=== PATIENT | male | born 1945 | race Caucasian/White ===

== ENCOUNTER 2023-03-31 01:45 | Emergency (ER) | payer MEDICARE, OTHER ==
[~2023-03-31] VITALS: Ht 172.7 cm; Wt 77.6 kg
[2023-03-31] MEDS ORDERED: PREG50CA GT (02:25)
[2023-03-31] MEDS ORDERED: GLIM4TAB37 GT (02:25)
[2023-03-31] MEDS ORDERED: SENN8.6T19 GT (02:25)
[2023-03-31] MEDS ORDERED: ZINC50TA69 GT (02:25)
[2023-03-31] MEDS ORDERED: ASPI81TA31 GT (02:25)
[2023-03-31] MEDS ORDERED: ARGI1POW13 GT (02:25)
[2023-03-31] MEDS ORDERED: FAMO40TA7 GT (02:25)
[2023-03-31] MEDS ORDERED: ACET160E36 GT (02:25)
[2023-03-31] MEDS ORDERED: GABA800T11 GT (02:25)
[2023-03-31] MEDS ORDERED: METF-442 GT (02:25)
[2023-03-31] MEDS ORDERED: ROPI1TAB6 GT (02:25)
[2023-03-31] MEDS ORDERED: ASCO500C18 GT (02:25)
[2023-03-31] MEDS ORDERED: METO25TA6 GT (02:25)
[2023-03-31] MEDS ORDERED: INSU100V39 SQ (02:25)
[2023-03-31] MEDS ORDERED: MULT-1045 GT (02:25)
[2023-03-31] MEDS ORDERED: ATOR80TA GT (02:25)
[2023-03-31] MEDS ORDERED: TAMS-3 GT (02:25)
[2023-03-31] MEDS ORDERED: ZINC56.713 TP (02:25)
[2023-03-31] MEDS ORDERED: ONDA-104 GT (02:25)
[2023-03-31] MEDS ORDERED: AMMO385C4 TP (02:25)
[2023-03-31] MEDS ORDERED: VALP250S4 GT (02:25)
[2023-03-31] MEDS ORDERED: TOPI50TA24 GT (02:25)
[2023-03-31] MEDS ORDERED: DONE23TA3 GT (02:25)
[2023-03-31] MEDS ORDERED: BISA10SU61 RC (02:25)
[2023-03-31] MEDS ORDERED: HEPA500034 SQ (02:25)
[2023-03-31] MEDS ORDERED: INSU100V7 SQ (02:25)
[2023-03-31] MEDS ORDERED: CARB1TAB21 GT (02:25)
[2023-03-31] MEDS ORDERED: POLY17PO4 GT (02:25)
[2023-03-31] MEDS ORDERED: AMIN30LI2 PO (02:25)
[2023-03-31] MEDS ORDERED: METO5TAB87 GT (02:25)
[2023-03-31] MEDS ORDERED: LACT10SO58 GT (02:25)
[2023-03-31] MEDS ORDERED: PRED20TA GT (02:25)
[2023-03-31] MEDS ORDERED: CRAN450T9 GT (02:25)
[2023-03-31] MEDS ORDERED: NA P133E RC (02:25)
[2023-03-31] MEDS ORDERED: MAGN400O6 GT (02:25)
--- NOTE | 2023-03-31 03:12 | NUR ---
1) IV ACCESS TO LEFT HAND 22G. ii) N/saline 0.9% running as a bolus.
--- NOTE | 2023-03-31 03:45 | NUR ---
1) Received from long term-[facility] - in [place]. 2) On arrival patient unresponsive - baseline. Patient is arousable to pain. 3) Medical history of: Alzheimers, Parkinson, dementia, peripheral vascular disease, diabetic - type2. 4) Patient need all care du to condition. 5) Come in with ambulance.
--- NOTE | 2023-03-31 04:02 | NUR ---
1) LAB- CRITICAL VALUES i) Glucose 309 ii) Troponin 80 iii) Lactic Acid 4.4 2) ER informed - no new orders
[2023-03-31 04:14] LABS: HEMATOCRIT 55.8 % (36.7-47.1); MEAN CORPUSCULAR HEMOGLOBIN 30.8 uug (23.8-33.4); MEAN CORPUSCULAR VOLUME 92.5 fL (73.0-96.2); PLATELET COUNT (AUTO) 161 K/uL (152-348)
--- NOTE | 2023-03-31 04:14 | NUR ---
LABS; i) Urine ii) Covid Test taken and sent to lab.
[2023-03-31 04:17] LABS: ALANINE AMINOTRANSFERASE 28 U/L (16-63); ALKALINE PHOSPHATASE 103 U/L (50-136); ASPARTATE AMINOTRANSFERASE 21 U/L (15-37); BILIRUBIN,DIRECT 0.3 mg/dL (0.0-0.2); BILIRUBIN,TOTAL 0.9 mg/dL (0.2-1.0); CARBON DIOXIDE 32 mmol/L (21-32); CHLORIDE 95 mmol/L (98-107); CREATININE 0.9 mg/dL (0.6-1.3); POTASSIUM 4.5 mmol/L (3.5-5.1); TOTAL PROTEIN, SERUM 6.1 g/dL (6.4-8.2); UREA NITROGEN, BLOOD 25 mg/dL (7-18)
[2023-03-31 04:34] LABS: GLUCOSE 309 mg/dL (74-106)
[2023-03-31] MEDS ORDERED: VANCOMYCIN IV 1,000 MG in IV DEXTROSE 5% 250 ML IV ONE (04:45)
[2023-03-31] MEDS ORDERED: IV NS 1000 ML 1,000 ML IV ONE ×2 (04:45→10:30)
[2023-03-31 04:54] LABS: *BILIRUBIN,URIN 1+ (NEGATIVE); *CLARITY,URINE CLEAR (CLEAR); *COLOR,URINE YELLOW (YELLOW); *KETONES,URINE 2+ (NEGATIVE); LEUKOCYTE ESTERASE ,URINE 1+ (NEGATIVE); NITRITE, URINE NEGATIVE (NEGATIVE); UGLUCOSE TRACE (NEGATIVE)
[2023-03-31] MEDS ORDERED: PIPERACILLIN/TAZO 4.5 GM VIAL IV ONE (05:21)
[2023-03-31] MEDS ORDERED: VANCOMYCIN IV 200 ML ONE (05:21)
[2023-03-31] MEDS ORDERED: MAGNESIUM SULFATE/D5W 100 ML ONE ×2 (05:22→07:26)
[2023-03-31] MEDS: MAGNESIUM SULFATE/D5W 100 ML IV SCH ×3 (05:24→06:45)
--- NOTE | 2023-03-31 05:40 | NUR ---
IV ATB running as per regime. Patient asleep at the time of this report
[2023-03-31] MEDS ORDERED: PIPERACILLIN SODIUM/TAZOBACTAM 4.5 G in IV DEXTROSE 5% 50 ML IV SCH (06:00)
[2023-03-31 06:16] LABS: *BLOOD, URINE TRACE (NEGATIVE)
--- NOTE | 2023-03-31 06:55 | NUR ---
Spoke to family - aware of possible transfer to [facility] or [facility].
[2023-03-31 07:00] LABS: WBC,URINE 80-100 /HPF (0-3)
[2023-03-31 07:01] LABS: SQUAMOUS EPITHELIAL CELL,UR NONE SEEN /HPF (NONE SEEN)
[2023-03-31 07:02] LABS: BACTERIA,URINE FEW /HPF (NONE SEEN); CALCIUM OXALATE CRYSTALS,UR FEW /HPF (NONE SEEN); MUCUS,URINE FEW /LPF (0-FEW)
[2023-03-31] MEDS ORDERED: IV NORMAL SALINE 250 ML IV ONE (08:43)
[2023-03-31] MEDS ORDERED: SWABABLE VALVE TRANSFER SET EA MC ONE (08:43)
[2023-03-31] MEDS ORDERED: IOHEXOL 350 100 ML INFUS..BTL ONE (08:43)
--- NOTE | 2023-03-31 08:56 | NUR ---
0717am: Forex Trader assumes care: SBAR received from chargemaster analyst Kristofer. This patient is for transfer to [facility] with a working diagnosis of pneumonitis, pending detailed transfer information from patient's insurance company at this time. 0730am: 1st contact with patient: baseline non-interactive, non-verbal, his eyes are close but opens to deep stimuli, he is moving his upper extremities. There are fine uncontrollable intermittent tremors to R upper extremity seen. Patient's respiration is non-labored and even with SPO2=90% room air. His skin is cool and dry. Trace movement to lower extremities seen. 0830am: Patient is for CTA chest. 2 RNs attempted another peripheral IV line insertion, unsuccessful, notified. 0855am: Patient is still waiting for transfer information from the insurance company's case hardener per ER registration/admitting staff
--- NOTE | 2023-03-31 10:04 | NUR ---
Patient is back from CT scan. IV line was infiltrated while in CT scan, notified.
--- NOTE | 2023-03-31 10:39 | NUR ---
Patient will be transferred to an outside facility: [facility]- ER Physician: Julio Darling Location: ER department (ER to ER) RN: Shaniqua accepted hands off report. ALS ambulance ETA: 1230pm with [facility] (I arranged this.) pending callback from [email or web address] pt's family: Amanda was updated via phone
--- NOTE | 2023-03-31 13:26 | NUR ---
SBAR given to tyre retreader named James of ALS unit#[id number] ([facility]). Patient left ER in stable condition with all his belongings.
== END 2023-03-31 13:29 | disposition short-term general hospital (02) ==
LOC: ER 01:45
DX: J18.9 Pneumonia, unspecified organism (principal); E86.0 Dehydration; I48.92 Unspecified atrial flutter; E83.42 Hypomagnesemia; E87.20 Acidosis, unspecified; F09 Unspecified mental disorder due to known physiological condition; E11.9 Type 2 diabetes mellitus without complications; Z95.0 Presence of cardiac pacemaker; Z79.899 Other long term (current) drug therapy; Z79.82 Long term (current) use of aspirin; Z79.4 Long term (current) use of insulin; Z20.822 Contact with and (suspected) exposure to COVID-19
CPT/HCPCS: 99285; 96365; 71275; 71045; 96361; 96366; 87426; 80076; 80048; 81001; 83880; 83735; 85025; 85379; 85730; 84484; 36415; 93005; 96368; 83605 ×2; J3475 ×2; Q9967; J2543; J3370; J7040 ×2; A4663

== ENCOUNTER 2023-12-13 14:40 | Inpatient (IN) | payer MEDICARE, OTHER ==
[~2023-12-13] VITALS: Ht 172.7 cm; Wt 79.4 kg
[~2023-12-13 14:40] MED LIST: ACET160E36 GT; AMIN30LI2 PO; AMMO385C4 TP; ARGI1POW13 GT; ASCO500C18 GT; ASPI81TA31 GT; ATOR80TA GT; BISA10SU61 RC; CARB1TAB21 GT; CRAN450T9 GT; DONE23TA3 GT; FAMO40TA7 GT; GABA800T11 GT; GLIM4TAB37 GT; HEPA500034 SQ; INSU100V39 SQ; INSU100V7 SQ; LACT10SO58 GT; MAGN400O6 GT; METF-442 GT; METO25TA6 GT; METO5TAB87 GT; MULT-1045 GT; NA P133E RC; ONDA-104 GT; POLY17PO4 GT; PRED20TA GT; PREG50CA GT; ROPI1TAB6 GT; SENN8.6T19 GT; TAMS-3 GT; TOPI50TA24 GT; VALP250S4 GT; ZINC50TA69 GT; ZINC56.713 TP
[2023-12-13] MEDS ORDERED: CLINDAMYCIN PHOSPHATE IV 600 MG in IV DEXTROSE 5% 100 ML IV ONE ×4 (15:00)
[2023-12-13] MEDS ORDERED: CEFTRIAXONE 1 G in IV DEXTROSE 5% 50 ML IV ONE ×4 (15:00)
[2023-12-13] MEDS ORDERED: IV NORMAL SALINE 1000 ML BAG IV ONE ×2 (15:00)
[2023-12-13 15:18] LABS: ABG BASE EXCESS 5.2 mmol/L (-2.0-2.0); ABG HCO3 30.6 mmol/L (22.0-26.0); ABG PCO2 48.8 mmHg (35.0-48.0); ABG PH 7.415 (7.340-7.440); ABG PO2 52.7 mmHg (75.0-100.0); AaDO2 87.4 mmHg; COHb 0.6 % (0.0-3.9); MetHb 0.3 % (0.0-1.5); O2Hb 83.8 % (94.0-97.0)
[2023-12-13 15:26] LABS: HEMATOCRIT 28.8 % (36.7-47.1); RED BLOOD CELL COUNT(AUTO) 3.29 MIL/uL (4.06-5.63)
[2023-12-13 15:35] LABS: CALCIUM 9.1 mg/dL (8.5-10.1); CARBON DIOXIDE 28 mmol/L (21-32); CHLORIDE 91 mmol/L (98-107); CREATININE 0.7 mg/dL (0.6-1.3); GLUCOSE 173 mg/dL (74-106); POTASSIUM 4.5 mmol/L (3.5-5.1); SODIUM SERUM 129 mmol/L (136-145); UREA NITROGEN, BLOOD 27 mg/dL (7-18)
[2023-12-13 15:36] LABS: BASOPHILS # (AUTO) 0.1 K/UL (0.0-0.2); BASOPHILS % (AUTO) 0.5 % (0.0-2.0); DIFFERENTIAL COMMENT 0; EOSINOPHILS # (AUTO) 0.1 K/uL (0.0-0.7); EOSINOPHILS % (AUTO) 0.7 % (0.0-7.0); HEMOGLOBIN 9.3 g/dL (12.5-16.3); LYMPHOCYTES # (AUTO) 0.5 K/uL (0.8-4.8); LYMPHOCYTES % (AUTO) 3.2 % (20.5-51.5); MEAN CORPUSCULAR HEMOGLOBIN 28.3 uug (23.8-33.4); MEAN CORPUSCULAR HGB CONC 32 g/dL (32.5-36.3); MEAN CORPUSCULAR VOLUME 87.7 fL (73.0-96.2); MONOCYTES # (AUTO) 0.9 K/uL (0.1-1.30); MONOCYTES % (AUTO) 5.5 % (0.0-11.0); NEUTROPHILS # (AUTO) 14.6 K/uL (1.8-8.9); NEUTROPHILS % (AUTO) 90.1 % (38.5-71.5); PLATELET COUNT (AUTO) 263 K/uL (152-348); RED CELL DISTRIBUTION WIDTH 19.6 % (12.1-16.2); WHITE BLOOD COUNT (AUTO) 16.3 K/uL (3.6-10.2)
[2023-12-13] MEDS ORDERED: CEFTRIAXONE /D5W 50ML IVPB **ER PYXIS IV ONE (15:46)
[2023-12-13 15:48] LABS: ALANINE AMINOTRANSFERASE 9 U/L (16-63); ALBUMIN 2.5 g/dL (3.4-5.0); ALKALINE PHOSPHATASE 116 U/L (50-136); ASPARTATE AMINOTRANSFERASE 13 U/L (15-37); BILIRUBIN,DIRECT 0.2 mg/dL (0.0-0.2); BILIRUBIN,TOTAL 0.4 mg/dL (0.2-1.0); NT-PRO BNP 1192 pg/mL (0-125); TOTAL PROTEIN, SERUM 7.2 g/dL (6.4-8.2)
[2023-12-13] MEDS ORDERED: CLINDAMYCIN 600 MG PIGGYBACK**ER OMNI IV ONE (15:48)
[2023-12-13 16:10] LABS: LACTIC ACID 3.3 mmol/L (0.4-2.0)
[2023-12-13 16:52] LABS: IRON, SERUM 26 ug/dL (50-175)
[2023-12-13 18:04] LABS: *OCCULT BLOOD STOOL NEGATIVE (NEGATIVE)
[2023-12-13 18:22] LABS: *BLOOD, URINE 3+ (NEGATIVE); *CLARITY,URINE TURBID (CLEAR); *COLOR,URINE RED (YELLOW); *KETONES,URINE NEGATIVE (NEGATIVE); *UROBILINOGEN,URINE 0.2 E.U./dl (NORMAL); LEUKOCYTE ESTERASE ,URINE 3+ (NEGATIVE); NITRITE, URINE NEGATIVE (NEGATIVE); PH,URINE 8.5 (5.0-8.0); UGLUCOSE TRACE (NEGATIVE)
[2023-12-13 18:39] LABS: *PROTEIN,URINE 3+ (NEGATIVE)
[2023-12-13] MEDS ORDERED: MAGNESIUM HYDROXIDE 30 ML LIQUID UDC GT PRN (18:45)
[2023-12-13] MEDS ORDERED: BISACODYL 10 MG SUPP.RECT RC PRN (18:45)
[2023-12-13] MEDS ORDERED: FLEET ENEMA 133 ML BOTTLE RC PRN (18:45)
[2023-12-13 18:48] LABS: *BILIRUBIN,URIN 1+ (NEGATIVE)
[2023-12-13] MEDS ORDERED: ONDANSETRON 4 MG/2 ML VIAL IV PRN (19:00)
[2023-12-13] MEDS ORDERED: DEXTROSE 50% 50 ML DISP.SYRIN IV PRN (19:00)
[2023-12-13] MEDS ORDERED: MORPHINE SULFATE 2 MG/1 ML DISP.SYRIN IV PRN (19:00)
[2023-12-13 19:11] LABS: BACTERIA,URINE MODERATE /HPF (NONE SEEN); RBC,URINE TNTC /HPF (0-3); SQUAMOUS EPITHELIAL CELL,UR FEW /HPF (NONE SEEN); WBC,URINE 20-50 /HPF (0-3)
[2023-12-13 21:50] VITALS: BP 94/48; TEMP 98.5; O2SAT 96
[2023-12-13] MEDS ORDERED: INSULIN GLARGINE,HUM 300 UNITS/3 ML CARTRIDGE SQ SCH (23:14)
[2023-12-14] VITALS: BP 105/57; TEMP 100.8; O2SAT 96
[2023-12-14] MEDS ORDERED: VANCOMYCIN IV 1,000 MG in IV DEXTROSE 5% 250 ML IV ONE ×2
[2023-12-14] MEDS: VALPROIC ACID 250 MG/5 ML LIQUID UDC GT SCH ×2 (00:12→08:36)
[2023-12-14] MEDS: HEPARIN SODIUM,PORCINE 5,000 UNITS/ML VIAL SQ SCH ×2 (00:13→08:34)
[2023-12-14] MEDS: TAMSULOSIN HCL 0.4 MG CAP.SR.24H XX SCH ×2 (00:13→08:33)
[2023-12-14] MEDS: CARBIDOPA/LEVODOPA 25-100MG TABLET GT SCH ×2 (00:13→08:32)
[2023-12-14] MEDS ORDERED: PIPERACILLIN SODIUM/TAZO 3.375 GM VIAL ONE (00:45)
[2023-12-14] MEDS ORDERED: PIPERACILLIN/TAZOBACTAM/D5W 50 ML IV ONE (00:46)
[2023-12-14] MEDS ORDERED: VANCOMYCIN IV 200 ML ONE (00:47)
[2023-12-14] MEDS ORDERED: INSULIN GLARGINE,HUM 300 UNITS/3 ML CARTRIDGE SQ ONE (00:48)
[2023-12-14] MEDS: PIPERACILLIN SODIUM/TAZOBACTAM 3.375 G in IV DEXTROSE 5% 50 ML IV SCH ×2 (00:53→05:21)
[2023-12-14] MEDS: BLOOD SUGAR DIAGNOSTIC 1 EACH STRIP VI SCH ×4 (00:59→18:25)
[2023-12-14] MEDS: INSULIN REGULAR, HUMAN 300 UNIT/3 ML VIAL SQ PRN ×3 (01:09→18:23)
[2023-12-14 04:00] VITALS: BP 102/51; TEMP 98.7; O2SAT 96
[2023-12-14 05:59] LABS: ABG BASE EXCESS 5.9 mmol/L (-2.0-2.0); ABG HCO3 31.2 mmol/L (22.0-26.0); ABG PCO2 48.7 mmHg (35.0-48.0); ABG PH 7.424 (7.340-7.440); ABG PO2 93.4 mmHg (75.0-100.0); ABG SITE RIGHT RADIAL; ABG TOTAL HEMOGLOBIN 9.8 G/dL (14.0-18.0); AaDO2 97.2 mmHg; COHb 0.6 % (0.0-3.9); MetHb 0.1 % (0.0-1.5); O2Hb 96.1 % (94.0-97.0)
[2023-12-14 07:46] LABS: BASOPHILS % (AUTO) 0.2 % (0.0-2.0); EOSINOPHILS # (AUTO) 0.4 K/uL (0.0-0.7); EOSINOPHILS % (AUTO) 2.4 % (0.0-7.0); HEMATOCRIT 27.5 % (36.7-47.1); HEMOGLOBIN 8.9 g/dL (12.5-16.3); LYMPHOCYTES # (AUTO) 0.9 K/uL (0.8-4.8); LYMPHOCYTES % (AUTO) 5.2 % (20.5-51.5); MEAN CORPUSCULAR HEMOGLOBIN 28.9 uug (23.8-33.4); MEAN CORPUSCULAR HGB CONC 32 g/dL (32.5-36.3); MEAN CORPUSCULAR VOLUME 89.5 fL (73.0-96.2); MONOCYTES # (AUTO) 0.9 K/uL (0.1-1.30); NEUTROPHILS # (AUTO) 15.2 K/uL (1.8-8.9); NEUTROPHILS % (AUTO) 87.2 % (38.5-71.5); PLATELET COUNT (AUTO) 263 K/uL (152-348); RED BLOOD CELL COUNT(AUTO) 3.07 MIL/uL (4.06-5.63); RED CELL DISTRIBUTION WIDTH 19.7 % (12.1-16.2); WHITE BLOOD COUNT (AUTO) 17.4 K/uL (3.6-10.2)
[2023-12-14 08:10] VITALS: O2SAT 98
[2023-12-14] MEDS: ALBUTEROL SULFATE 2.5 MG/ 0.5 ML NEBU NEB PRN (08:11)
[2023-12-14 08:20] LABS: DIFFERENTIAL COMMENT 1
[2023-12-14 08:21] LABS: THYROID STIMULATING HORMONE 1.664 mIU/mL (0.358-3.740)
[2023-12-14] MEDS: ropiniROLE 1 MG TABLET GT SCH ×3 (08:33→17:17)
[2023-12-14] MEDS: MULTIVITAMINS,THERAPEUTIC TABLET GT SCH (08:33)
[2023-12-14] MEDS: FAMOTIDINE 20 MG TABLET GT SCH (08:33)
[2023-12-14] MEDS: PROTEIN SUPPLEMENT (PROSTAT) 30 ML LIQUID PO SCH (08:36)
[2023-12-14] MEDS: ARGININE/GLUTAMINE/CALCIUM BMB 1 EACH POWD.PACK GT SCH ×2 (08:36→17:21)
[2023-12-14] MEDS ORDERED: SENNOSIDES 1 TABLET GT SCH (09:00)
[2023-12-14] MEDS ORDERED: TOPIRAMATE 25 MG TABLET GT SCH (09:00)
[2023-12-14] MEDS ORDERED: ZINC SULFATE 220 MG CAPSULE GT SCH (09:00)
[2023-12-14] MEDS ORDERED: ASPIRIN 81 MG TAB.CHEW GT SCH (09:00)
[2023-12-14 09:06] LABS: IRON, SERUM 10 ug/dL (50-175)
[2023-12-14] MEDS ORDERED: DOCU100T2 GT (09:18)
[2023-12-14] MEDS ORDERED: BETH10TA2 GT (09:18)
[2023-12-14] MEDS ORDERED: ESCI10TA GT (09:18)
[2023-12-14] MEDS ORDERED: DOXA2TAB2 GT (09:18)
[2023-12-14] MEDS ORDERED: MULT-213 GT (09:18)
[2023-12-14] MEDS ORDERED: CHOL-35 GT (09:18)
[2023-12-14] MEDS ORDERED: DONE5TAB34 GT (09:18)
[2023-12-14] MEDS ORDERED: INSU3INS6 SQ (09:18)
[2023-12-14] MEDS ORDERED: ONDA4TAB5 GT (09:18)
[2023-12-14] MEDS ORDERED: FAMO40TA7 GT (09:18)
[2023-12-14] MEDS ORDERED: MELA5TAB GT (09:18)
[2023-12-14] MEDS ORDERED: METF-442 GT (09:18)
[2023-12-14] MEDS ORDERED: FOLI0.8T23 GT (09:18)
[2023-12-14] MEDS ORDERED: METO25TA6 GT (09:18)
[2023-12-14] MEDS ORDERED: CRAN450T9 GT (09:18)
[2023-12-14] MEDS ORDERED: GABA300C GT (09:18)
[2023-12-14] MEDS ORDERED: ATOR10TA GT (09:18)
[2023-12-14] MEDS ORDERED: ACET-2030 GT (09:18)
[2023-12-14] MEDS ORDERED: HONE15GE TP ×4 (09:37→10:01)
[2023-12-14] MEDS ORDERED: COLL30OI TOP ×3 (09:46→10:10)
[2023-12-14 09:50] LABS: POTASSIUM 4.4 mmol/L (3.5-5.1); SODIUM SERUM 141 mmol/L (136-145)
[2023-12-14 09:51] LABS: BILIRUBIN,TOTAL 0.5 mg/dL (0.2-1.0); CARBON DIOXIDE 29 mmol/L (21-32); CHLORIDE 101 mmol/L (98-107); CREATININE 0.7 mg/dL (0.6-1.3); GLUCOSE 113 mg/dL (74-106); PHOSPHOROUS 3.2 mg/dL (2.5-4.9); UREA NITROGEN, BLOOD 15 mg/dL (7-18)
[2023-12-14 09:52] LABS: ALANINE AMINOTRANSFERASE 8 U/L (16-63); ALBUMIN 2.3 g/dL (3.4-5.0); ALKALINE PHOSPHATASE 73 U/L (50-136); ASPARTATE AMINOTRANSFERASE 10 U/L (15-37); MAGNESIUM 1.5 mg/dL (1.8-2.4); TOTAL PROTEIN, SERUM 6.9 g/dL (6.4-8.2)
[2023-12-14] MEDS ORDERED: POVI37802 TP (09:58)
[2023-12-14] MEDS ORDERED: COLLAGEN TOP (10:07)
[2023-12-14 10:51] LABS: CHOLESTEROL 95 mg/dL (<200); HDL CHOLESTEROL 56 mg/dL (40-60); TRIGLYCERIDES 95 MG/DL (30-150)
[2023-12-14 11:11] LABS: VALPROIC ACID 35 ug/mL (50-100)
[2023-12-14 11:30] VITALS: BP 103/48; TEMP 98.4; O2SAT 93
[2023-12-14] MEDS ORDERED: VANCOMYCIN IV 1,000 MG in IV DEXTROSE 5% 250 ML IV SCH (12:00)
[2023-12-14] MEDS: VANCOMYCIN IV 1,000 MG in IV DEXTROSE 5% 250 ML IV SCH ×2 (12:15→23:45)
[2023-12-14] MEDS ORDERED: PHYTONADIONE 10 MG/1 ML AMPUL SQ ONE (12:45)
[2023-12-14] MEDS: DOCUSATE SODIUM 100 MG/10 ML LIQUID UDC GT SCH (13:46)
[2023-12-14] MEDS: SOD FERRIC GLUC COMPLX/SUCROSE 125 MG in IV NORMAL SALINE 100 ML IV SCH (13:47)
[2023-12-14] MEDS: PIPERACILLIN SODIUM/TAZOBACTAM 3.375 G in IV DEXTROSE 5% 100 ML IV SCH ×2 (13:47→21:04)
[2023-12-14] MEDS ORDERED: PIPERACILLIN SODIUM/TAZOBACTAM 3.375 G in IV DEXTROSE 5% 50 ML IV SCH (14:00)
[2023-12-14] MEDS ORDERED: SWABABLE VALVE TRANSFER SET EA MC ONE (14:37)
[2023-12-14] MEDS ORDERED: IOHEXOL 300MG/ML 100 ML INFUS..BTL ONE (14:37)
[2023-12-14] MEDS ORDERED: IV NORMAL SALINE 250 ML IV ONE (14:37)
[2023-12-14] MEDS: DONEPEZIL 5 MG TABLET GT SCH (14:49)
[2023-12-14] MEDS: ESCITALOPRAM OXALATE 10 MG TABLET GT SCH (14:49)
[2023-12-14 16:19] VITALS: BP 116/46; TEMP 98.8; O2SAT 92
[2023-12-14] MEDS: POVIDONE-IODINE OINT 30 GM TUBE TP SCH (16:19)
[2023-12-14] MEDS: MEDIHONEY= THERAHONEY 1.5 OZ TUBE TOP SCH ×5 (16:22→16:28)
[2023-12-14] MEDS: ACETAMINOPHEN ES 500 MG TABLET GT SCH (17:18)
[2023-12-14] MEDS: GABAPENTIN 300 MG CAPSULE GT SCH ×2 (17:18→23:45)
[2023-12-14] MEDS: BETHANECHOL CHLORIDE 10 MG TABLET GT SCH ×2 (18:19→23:45)
[2023-12-14] MEDS: GLUCERNA 1.2 1000ML LIQUID GT PRN (19:00)
[2023-12-14 20:00] VITALS: TEMP 99.5
[2023-12-14] MEDS: ATORVASTATIN 10 MG TABLET GT SCH (21:03)
[2023-12-14] MEDS: MELATONIN 3 MG TABLET GT SCH (21:04)
[2023-12-14] MEDS: DOXAZOSIN 2 MG TABLET GT SCH (21:04)
[2023-12-14] MEDS: INSULIN GLARGINE,HUM 300 UNITS/3 ML CARTRIDGE SQ SCH (21:19)
[2023-12-15] VITALS (8 sets, daily range): BP systolic 103–166; BP diastolic 49–72; TEMP 97.2–100; O2SAT 90–99
[2023-12-15] MEDS: BLOOD SUGAR DIAGNOSTIC 1 EACH STRIP VI SCH ×5 (00:03→23:53)
[2023-12-15] MEDS: INSULIN REGULAR, HUMAN 300 UNIT/3 ML VIAL SQ PRN ×5 (00:21→23:55)
[2023-12-15] MEDS: GABAPENTIN 300 MG CAPSULE GT SCH ×3 (05:51→17:00)
[2023-12-15] MEDS: BETHANECHOL CHLORIDE 10 MG TABLET GT SCH ×3 (05:51→17:00)
[2023-12-15] MEDS: PIPERACILLIN SODIUM/TAZOBACTAM 3.375 G in IV DEXTROSE 5% 100 ML IV SCH (05:57)
[2023-12-15] MEDS: GLUCERNA 1.2 1000ML LIQUID GT PRN ×2 (06:56→23:24)
[2023-12-15 07:57] LABS: BASOPHILS # (AUTO) 0.1 K/UL (0.0-0.2); BASOPHILS % (AUTO) 0.5 % (0.0-2.0); DIFFERENTIAL COMMENT 1; EOSINOPHILS # (AUTO) 0.6 K/uL (0.0-0.7); EOSINOPHILS % (AUTO) 4.3 % (0.0-7.0); HEMOGLOBIN 9.1 g/dL (12.5-16.3); LYMPHOCYTES # (AUTO) 0.5 K/uL (0.8-4.8); LYMPHOCYTES % (AUTO) 3.8 % (20.5-51.5); MEAN CORPUSCULAR HEMOGLOBIN 28.7 uug (23.8-33.4); MEAN CORPUSCULAR HGB CONC 32 g/dL (32.5-36.3); MEAN CORPUSCULAR VOLUME 88.8 fL (73.0-96.2); MONOCYTES # (AUTO) 0.9 K/uL (0.1-1.30); MONOCYTES % (AUTO) 6.2 % (0.0-11.0); NEUTROPHILS # (AUTO) 11.9 K/uL (1.8-8.9); NEUTROPHILS % (AUTO) 85.2 % (38.5-71.5); PLATELET COUNT (AUTO) 234 K/uL (152-348); RED BLOOD CELL COUNT(AUTO) 3.16 MIL/uL (4.06-5.63)
[2023-12-15 08:31] LABS: CALCIUM 8.9 mg/dL (8.5-10.1); CARBON DIOXIDE 34 mmol/L (21-32); CHLORIDE 99 mmol/L (98-107); CREATININE 0.7 mg/dL (0.6-1.3); GLUCOSE 254 mg/dL (74-106); MAGNESIUM 1.6 mg/dL (1.8-2.4); PHOSPHOROUS 3.4 mg/dL (2.5-4.9); SODIUM SERUM 137 mmol/L (136-145); UREA NITROGEN, BLOOD 13 mg/dL (7-18)
[2023-12-15] MEDS: DONEPEZIL 5 MG TABLET GT SCH (08:42)
[2023-12-15] MEDS: CHOLECALCIFEROL 1,000 UNIT TABLET GT SCH (08:42)
[2023-12-15] MEDS: ropiniROLE 1 MG TABLET GT SCH ×3 (08:42→16:50)
[2023-12-15] MEDS: FAMOTIDINE 20 MG TABLET GT SCH (08:42)
[2023-12-15] MEDS: MULTIVITAMINS,THERAPEUTIC TABLET GT SCH (08:42)
[2023-12-15] MEDS: ESCITALOPRAM OXALATE 10 MG TABLET GT SCH (08:42)
[2023-12-15] MEDS: ACETAMINOPHEN ES 500 MG TABLET GT SCH ×2 (08:43→16:51)
[2023-12-15] MEDS: DOCUSATE SODIUM 100 MG/10 ML LIQUID UDC GT SCH (08:43)
[2023-12-15] MEDS: PROTEIN SUPPLEMENT (PROSTAT) 30 ML LIQUID PO SCH (08:46)
[2023-12-15] MEDS: MEDIHONEY= THERAHONEY 1.5 OZ TUBE TOP SCH ×5 (08:47→16:33)
[2023-12-15] MEDS: POVIDONE-IODINE OINT 30 GM TUBE TP SCH (08:51)
[2023-12-15] MEDS ORDERED: COLLAGENASE OINT 30 GM TUBE TOP SCH (09:00)
[2023-12-15] MEDS ORDERED: MEDIHONEY= THERAHONEY 1.5 OZ TUBE TOP SCH (09:00)
[2023-12-15] MEDS ORDERED: MAGNESIUM OXIDE 400 MG TABLET GT ONE (09:45)
[2023-12-15] MEDS: PIPERACILLIN SODIUM/TAZOBACTAM 3.375 G in IV DEXTROSE 5% 50 ML IV SCH ×3 (11:32→23:17)
[2023-12-15] MEDS: SOD FERRIC GLUC COMPLX/SUCROSE 125 MG in IV NORMAL SALINE 100 ML IV SCH (13:02)
[2023-12-15] MEDS: VANCOMYCIN IV 1,000 MG in IV DEXTROSE 5% 250 ML IV SCH (16:05)
[2023-12-15] MEDS: ARGININE/GLUTAMINE/CALCIUM BMB 1 EACH POWD.PACK GT SCH ×2 (16:22→16:51)
[2023-12-15] MEDS: ALBUTEROL SULFATE 2.5 MG/ 0.5 ML NEBU NEB PRN (16:48)
[2023-12-15] MEDS ORDERED: ACETYLCYSTEINE 10% 4ML VIAL NEB PRN (18:30)
[2023-12-15] MEDS ORDERED: ACETYLCYSTEINE 20% 800 MG/4 ML VIAL NEB PRN (19:00)
[2023-12-15] MEDS: ATORVASTATIN 10 MG TABLET GT SCH (21:03)
[2023-12-15] MEDS: DOXAZOSIN 2 MG TABLET GT SCH (21:04)
[2023-12-15] MEDS: MELATONIN 3 MG TABLET GT SCH (21:05)
[2023-12-15] MEDS: INSULIN GLARGINE,HUM 300 UNITS/3 ML CARTRIDGE SQ SCH (21:08)
[2023-12-15 23:26] LABS: ABG BASE EXCESS 6.3 mmol/L (-2.0-2.0); ABG HCO3 34.4 mmol/L (22.0-26.0); ABG PCO2 70.8 mmHg (35.0-48.0); ABG PH 7.304 (7.340-7.440); ABG PO2 68.2 mmHg (75.0-100.0); ABG SITE LEFT BRACHIAL; ABG TOTAL HEMOGLOBIN 10.5 G/dL (14.0-18.0); AaDO2 91.1 mmHg; COHb 0.6 % (0.0-3.9); MetHb 0.2 % (0.0-1.5); O2Hb 90.2 % (94.0-97.0)
[2023-12-16 00:01] VITALS: BP 115/61; TEMP 97.3; O2SAT 99
[2023-12-16] MEDS: VANCOMYCIN IV 1,000 MG in IV DEXTROSE 5% 250 ML IV SCH ×3 (00:10→23:46)
[2023-12-16] MEDS: BETHANECHOL CHLORIDE 10 MG TABLET GT SCH ×5 (00:17→23:00)
[2023-12-16] MEDS: GABAPENTIN 300 MG CAPSULE GT SCH ×5 (00:17→23:01)
[2023-12-16 01:20] LABS: ABG BASE EXCESS 3.2 mmol/L (-2.0-2.0); ABG HCO3 29.8 mmol/L (22.0-26.0); ABG PCO2 55.9 mmHg (35.0-48.0); ABG PH 7.344 (7.340-7.440); ABG PO2 130.4 mmHg (75.0-100.0); ABG SITE RIGHT RADIAL; ABG TOTAL HEMOGLOBIN 10.1 G/dL (14.0-18.0); AaDO2 98.4 mmHg; COHb 0.5 % (0.0-3.9); MetHb 0.3 % (0.0-1.5); O2Hb 97.8 % (94.0-97.0)
[2023-12-16 04:03] VITALS: BP 126/57; TEMP 98.6; O2SAT 100
[2023-12-16] MEDS: PIPERACILLIN SODIUM/TAZOBACTAM 3.375 G in IV DEXTROSE 5% 50 ML IV SCH ×4 (05:00→23:01)
[2023-12-16] MEDS: BLOOD SUGAR DIAGNOSTIC 1 EACH STRIP VI SCH ×4 (05:47→23:07)
[2023-12-16] MEDS: INSULIN REGULAR, HUMAN 300 UNIT/3 ML VIAL SQ PRN ×4 (05:50→23:10)
[2023-12-16 06:47] LABS: BASOPHILS # (AUTO) 0.3 K/UL (0.0-0.2); BASOPHILS % (AUTO) 1.1 % (0.0-2.0); EOSINOPHILS % (AUTO) 0.1 % (0.0-7.0); HEMATOCRIT 26.6 % (36.7-47.1); HEMOGLOBIN 8.4 g/dL (12.5-16.3); LYMPHOCYTES # (AUTO) 0.4 K/uL (0.8-4.8); LYMPHOCYTES % (AUTO) 1.7 % (20.5-51.5); MEAN CORPUSCULAR HEMOGLOBIN 28.3 uug (23.8-33.4); MEAN CORPUSCULAR HGB CONC 32 g/dL (32.5-36.3); MEAN CORPUSCULAR VOLUME 89.7 fL (73.0-96.2); MONOCYTES # (AUTO) 1.3 K/uL (0.1-1.30); MONOCYTES % (AUTO) 5.6 % (0.0-11.0); NEUTROPHILS # (AUTO) 20.5 K/uL (1.8-8.9); NEUTROPHILS % (AUTO) 91.5 % (38.5-71.5); PLATELET COUNT (AUTO) 276 K/uL (152-348); RED BLOOD CELL COUNT(AUTO) 2.97 MIL/uL (4.06-5.63); RED CELL DISTRIBUTION WIDTH 19.7 % (12.1-16.2); WHITE BLOOD COUNT (AUTO) 22.4 K/uL (3.6-10.2)
[2023-12-16 06:54] LABS: DIFFERENTIAL COMMENT 1
[2023-12-16 07:07] LABS: ALANINE AMINOTRANSFERASE 12 U/L (16-63); ALKALINE PHOSPHATASE 135 U/L (50-136); ASPARTATE AMINOTRANSFERASE 20 U/L (15-37); BILIRUBIN,TOTAL 0.4 mg/dL (0.2-1.0); CALCIUM 9.3 mg/dL (8.5-10.1); CARBON DIOXIDE 34 mmol/L (21-32); CHLORIDE 97 mmol/L (98-107); CREATININE 0.7 mg/dL (0.6-1.3); GLUCOSE 342 mg/dL (74-106); MAGNESIUM 1.6 mg/dL (1.8-2.4); PHOSPHOROUS 3.8 mg/dL (2.5-4.9); POTASSIUM 4.9 mmol/L (3.5-5.1); SODIUM SERUM 135 mmol/L (136-145); TOTAL PROTEIN, SERUM 7.1 g/dL (6.4-8.2); UREA NITROGEN, BLOOD 11 mg/dL (7-18)
[2023-12-16] MEDS: MEDIHONEY= THERAHONEY 1.5 OZ TUBE TOP SCH ×5 (09:00→16:11)
[2023-12-16] MEDS: PROTEIN SUPPLEMENT (PROSTAT) 30 ML LIQUID PO SCH (10:02)
[2023-12-16] MEDS: ropiniROLE 1 MG TABLET GT SCH ×3 (10:03→17:48)
[2023-12-16] MEDS: FAMOTIDINE 20 MG TABLET GT SCH (10:03)
[2023-12-16] MEDS: ESCITALOPRAM OXALATE 10 MG TABLET GT SCH (10:03)
[2023-12-16] MEDS: MULTIVITAMINS,THERAPEUTIC TABLET GT SCH (10:03)
[2023-12-16] MEDS: ARGININE/GLUTAMINE/CALCIUM BMB 1 EACH POWD.PACK GT SCH ×2 (10:03→17:51)
[2023-12-16] MEDS: DOCUSATE SODIUM 100 MG/10 ML LIQUID UDC GT SCH (10:03)
[2023-12-16] MEDS: CHOLECALCIFEROL 1,000 UNIT TABLET GT SCH (10:03)
[2023-12-16] MEDS: ACETAMINOPHEN ES 500 MG TABLET GT SCH ×2 (10:04→17:49)
[2023-12-16] MEDS: DONEPEZIL 5 MG TABLET GT SCH (10:04)
[2023-12-16 11:33] VITALS: BP 119/54; TEMP 97.8; O2SAT 93
[2023-12-16] MEDS ORDERED: FUROSEMIDE 40 MG/4 ML VIAL IV ONE (13:45)
[2023-12-16] MEDS: MAGNESIUM SULFATE/D5W 100 ML IV SCH ×4 (15:50→21:23)
[2023-12-16 16:00] VITALS: BP 127/54; TEMP 98.8; O2SAT 98
[2023-12-16] MEDS: POVIDONE-IODINE OINT 30 GM TUBE TP SCH (16:10)
[2023-12-16] MEDS: SOD FERRIC GLUC COMPLX/SUCROSE 125 MG in IV NORMAL SALINE 100 ML IV SCH (17:06)
[2023-12-16] MEDS: MELATONIN 3 MG TABLET GT SCH (20:11)
[2023-12-16] MEDS: ATORVASTATIN 10 MG TABLET GT SCH (20:11)
[2023-12-16] MEDS: DOXAZOSIN 2 MG TABLET GT SCH (20:11)
[2023-12-16 20:14] VITALS: BP 118/52; TEMP 98.4; O2SAT 97
[2023-12-16] MEDS: INSULIN GLARGINE,HUM 300 UNITS/3 ML CARTRIDGE SQ SCH (20:14)
[2023-12-17 00:11] VITALS: BP 130/65; TEMP 97.5; O2SAT 97
[2023-12-17 04:23] VITALS: BP 114/55; TEMP 98.6; O2SAT 96
[2023-12-17] MEDS: PIPERACILLIN SODIUM/TAZOBACTAM 3.375 G in IV DEXTROSE 5% 50 ML IV SCH ×4 (05:04→23:27)
[2023-12-17] MEDS: GABAPENTIN 300 MG CAPSULE GT SCH ×4 (05:15→23:27)
[2023-12-17] MEDS: BETHANECHOL CHLORIDE 10 MG TABLET GT SCH ×4 (05:15→23:27)
[2023-12-17] MEDS: BLOOD SUGAR DIAGNOSTIC 1 EACH STRIP VI SCH ×4 (05:18→23:22)
[2023-12-17] MEDS: INSULIN REGULAR, HUMAN 300 UNIT/3 ML VIAL SQ PRN ×4 (05:22→23:31)
[2023-12-17 07:37] LABS: BASOPHILS % (AUTO) 0.1 % (0.0-2.0); EOSINOPHILS # (AUTO) 0.5 K/uL (0.0-0.7); EOSINOPHILS % (AUTO) 3.3 % (0.0-7.0); HEMATOCRIT 25.8 % (36.7-47.1); HEMOGLOBIN 8.4 g/dL (12.5-16.3); LYMPHOCYTES # (AUTO) 0.6 K/uL (0.8-4.8); LYMPHOCYTES % (AUTO) 3.8 % (20.5-51.5); MEAN CORPUSCULAR HEMOGLOBIN 28.9 uug (23.8-33.4); MEAN CORPUSCULAR HGB CONC 33 g/dL (32.5-36.3); MEAN CORPUSCULAR VOLUME 88.6 fL (73.0-96.2); MONOCYTES # (AUTO) 1.2 K/uL (0.1-1.30); NEUTROPHILS # (AUTO) 12.7 K/uL (1.8-8.9); NEUTROPHILS % (AUTO) 84.8 % (38.5-71.5); PLATELET COUNT (AUTO) 312 K/uL (152-348); RED BLOOD CELL COUNT(AUTO) 2.91 MIL/uL (4.06-5.63); RED CELL DISTRIBUTION WIDTH 19.6 % (12.1-16.2)
[2023-12-17 07:55] LABS: DIFFERENTIAL COMMENT 1
[2023-12-17 08:00] VITALS: BP 123/60; TEMP 97.6; O2SAT 99
[2023-12-17 08:03] LABS: CALCIUM 9.7 mg/dL (8.5-10.1); CARBON DIOXIDE 39 mmol/L (21-32); CHLORIDE 99 mmol/L (98-107); CREATININE 0.7 mg/dL (0.6-1.3); GLUCOSE 236 mg/dL (74-106); MAGNESIUM 2.2 mg/dL (1.8-2.4); PHOSPHOROUS 3.3 mg/dL (2.5-4.9); SODIUM SERUM 140 mmol/L (136-145); UREA NITROGEN, BLOOD 26 mg/dL (7-18)
[2023-12-17] MEDS: MEDIHONEY= THERAHONEY 1.5 OZ TUBE TOP SCH ×5 (09:00→18:12)
[2023-12-17] MEDS: PROTEIN SUPPLEMENT (PROSTAT) 30 ML LIQUID PO SCH (09:25)
[2023-12-17] MEDS: DOCUSATE SODIUM 100 MG/10 ML LIQUID UDC GT SCH (09:26)
[2023-12-17] MEDS: CHOLECALCIFEROL 1,000 UNIT TABLET GT SCH (09:26)
[2023-12-17] MEDS: ARGININE/GLUTAMINE/CALCIUM BMB 1 EACH POWD.PACK GT SCH ×2 (09:26→18:27)
[2023-12-17] MEDS: FAMOTIDINE 20 MG TABLET GT SCH (09:26)
[2023-12-17] MEDS: DONEPEZIL 5 MG TABLET GT SCH (09:27)
[2023-12-17] MEDS: ropiniROLE 1 MG TABLET GT SCH ×3 (09:27→18:25)
[2023-12-17] MEDS: ESCITALOPRAM OXALATE 10 MG TABLET GT SCH (09:27)
[2023-12-17] MEDS: MULTIVITAMINS,THERAPEUTIC TABLET GT SCH (09:27)
[2023-12-17] MEDS: ACETAMINOPHEN ES 500 MG TABLET GT SCH ×2 (09:43→18:25)
[2023-12-17 11:17] VITALS: BP 120/59; TEMP 97.9; O2SAT 99
[2023-12-17] MEDS: GLUCERNA 1.2 1000ML LIQUID GT PRN (14:19)
[2023-12-17] MEDS: SOD FERRIC GLUC COMPLX/SUCROSE 125 MG in IV NORMAL SALINE 100 ML IV SCH (14:19)
[2023-12-17] MEDS ORDERED: FUROSEMIDE 40 MG/4 ML VIAL IV ONE (15:15)
[2023-12-17 15:59] VITALS: BP 114/59; TEMP 98.6; O2SAT 99
[2023-12-17] MEDS: SODIUM HYPOCHLORITE 0.25% (HALF STRENGTH) 480 ML BOTTLE TOP SCH (18:11)
[2023-12-17] MEDS: POVIDONE-IODINE OINT 30 GM TUBE TP SCH (18:12)
[2023-12-17] MEDS: METOPROLOL TARTRATE 25 MG TABLET PO SCH ×2 (18:27→21:00)
[2023-12-17 20:25] VITALS: BP 100/46; TEMP 97.7; O2SAT 94
[2023-12-17] MEDS: ATORVASTATIN 10 MG TABLET GT SCH (20:59)
[2023-12-17] MEDS: DOXAZOSIN 2 MG TABLET GT SCH (20:59)
[2023-12-17] MEDS: INSULIN GLARGINE,HUM 300 UNITS/3 ML CARTRIDGE SQ SCH (21:05)
[2023-12-17] MEDS: MELATONIN 3 MG TABLET GT SCH (21:07)
[2023-12-18] VITALS (8 sets, daily range): BP systolic 96–136; BP diastolic 40–52; TEMP 97.6–98.7; O2SAT 95–100
[2023-12-18] MEDS: GABAPENTIN 300 MG CAPSULE GT SCH ×3 (05:05→17:33)
[2023-12-18] MEDS: BETHANECHOL CHLORIDE 10 MG TABLET GT SCH ×3 (05:05→17:33)
[2023-12-18] MEDS: PIPERACILLIN SODIUM/TAZOBACTAM 3.375 G in IV DEXTROSE 5% 50 ML IV SCH ×3 (05:05→17:34)
[2023-12-18] MEDS: BLOOD SUGAR DIAGNOSTIC 1 EACH STRIP VI SCH ×3 (05:11→18:02)
[2023-12-18] MEDS: INSULIN REGULAR, HUMAN 300 UNIT/3 ML VIAL SQ PRN ×3 (05:13→18:09)
[2023-12-18 06:58] LABS: CHLORIDE 99 mmol/L (98-107); CREATININE 0.8 mg/dL (0.6-1.3); GLUCOSE 168 mg/dL (74-106); MAGNESIUM 1.8 mg/dL (1.8-2.4); PHOSPHOROUS 3.9 mg/dL (2.5-4.9); POTASSIUM 3.7 mmol/L (3.5-5.1); SODIUM SERUM 140 mmol/L (136-145); UREA NITROGEN, BLOOD 35 mg/dL (7-18)
[2023-12-18 07:28] LABS: CALCIUM 9.4 mg/dL (8.5-10.1)
[2023-12-18] MEDS: ALBUTEROL SULFATE 2.5 MG/ 0.5 ML NEBU NEB PRN (07:29)
[2023-12-18 07:31] LABS: BASOPHILS % (AUTO) 0.3 % (0.0-2.0); EOSINOPHILS # (AUTO) 0.4 K/uL (0.0-0.7); HEMATOCRIT 25.4 % (36.7-47.1); HEMOGLOBIN 8.2 g/dL (12.5-16.3); LYMPHOCYTES # (AUTO) 0.9 K/uL (0.8-4.8); LYMPHOCYTES % (AUTO) 6.9 % (20.5-51.5); MEAN CORPUSCULAR HEMOGLOBIN 29.2 uug (23.8-33.4); MEAN CORPUSCULAR HGB CONC 32 g/dL (32.5-36.3); MEAN CORPUSCULAR VOLUME 90.6 fL (73.0-96.2); MONOCYTES # (AUTO) 1.1 K/uL (0.1-1.30); MONOCYTES % (AUTO) 8.6 % (0.0-11.0); NEUTROPHILS # (AUTO) 10.2 K/uL (1.8-8.9); NEUTROPHILS % (AUTO) 81.2 % (38.5-71.5); PLATELET COUNT (AUTO) 333 K/uL (152-348); RED CELL DISTRIBUTION WIDTH 19.6 % (12.1-16.2); WHITE BLOOD COUNT (AUTO) 12.6 K/uL (3.6-10.2)
[2023-12-18 07:38] LABS: DIFFERENTIAL COMMENT 1
[2023-12-18 08:19] LABS: ABG BASE EXCESS 13.8 mmol/L (-2.0-2.0); ABG HCO3 39.9 mmol/L (22.0-26.0); ABG PCO2 57.6 mmHg (35.0-48.0); ABG PH 7.458 (7.340-7.440); ABG PO2 73.6 mmHg (75.0-100.0); ABG TOTAL HEMOGLOBIN 11.7 G/dL (14.0-18.0); AaDO2 95.1 mmHg; COHb 0.4 % (0.0-3.9); MetHb 0.1 % (0.0-1.5); O2Hb 94.3 % (94.0-97.0)
[2023-12-18 08:21] LABS: ABG SITE RIGHT RADIAL
[2023-12-18 08:26] LABS: CARBON DIOXIDE 41 mmol/L (21-32)
[2023-12-18] MEDS: DOCUSATE SODIUM 100 MG/10 ML LIQUID UDC GT SCH (08:51)
[2023-12-18] MEDS: CHOLECALCIFEROL 1,000 UNIT TABLET GT SCH (08:52)
[2023-12-18] MEDS: ACETAMINOPHEN ES 500 MG TABLET GT SCH ×2 (08:52→16:38)
[2023-12-18] MEDS: ropiniROLE 1 MG TABLET GT SCH ×3 (08:52→16:38)
[2023-12-18] MEDS: FAMOTIDINE 20 MG TABLET GT SCH (08:52)
[2023-12-18] MEDS: DONEPEZIL 5 MG TABLET GT SCH (08:53)
[2023-12-18] MEDS: MULTIVITAMINS,THERAPEUTIC TABLET GT SCH (08:53)
[2023-12-18] MEDS: PROTEIN SUPPLEMENT (PROSTAT) 30 ML LIQUID PO SCH (08:53)
[2023-12-18] MEDS: SODIUM HYPOCHLORITE 0.25% (HALF STRENGTH) 480 ML BOTTLE TOP SCH (08:53)
[2023-12-18] MEDS: ESCITALOPRAM OXALATE 10 MG TABLET GT SCH (08:53)
[2023-12-18] MEDS: POVIDONE-IODINE OINT 30 GM TUBE TP SCH (08:54)
[2023-12-18] MEDS: MEDIHONEY= THERAHONEY 1.5 OZ TUBE TOP SCH ×2 (08:54)
[2023-12-18] MEDS: METOPROLOL TARTRATE 25 MG TABLET PO SCH ×2 (08:55→21:00)
[2023-12-18] MEDS: ARGININE/GLUTAMINE/CALCIUM BMB 1 EACH POWD.PACK GT SCH ×2 (08:55→16:38)
[2023-12-18] MEDS: SOD FERRIC GLUC COMPLX/SUCROSE 125 MG in IV NORMAL SALINE 100 ML IV SCH (14:58)
[2023-12-18] MEDS: FUROSEMIDE 40 MG/4 ML VIAL IV SCH ×2 (16:38→21:00)
[2023-12-18] MEDS: DOXAZOSIN 2 MG TABLET GT SCH (21:00)
[2023-12-18] MEDS: MELATONIN 3 MG TABLET GT SCH (21:30)
[2023-12-18] MEDS: ATORVASTATIN 10 MG TABLET GT SCH (21:30)
[2023-12-18] MEDS: INSULIN GLARGINE,HUM 300 UNITS/3 ML CARTRIDGE SQ SCH (21:59)
[2023-12-19] VITALS (7 sets, daily range): BP systolic 108–145; BP diastolic 46–65; TEMP 97.4–98.8; O2SAT 92–99
[2023-12-19] MEDS: PIPERACILLIN SODIUM/TAZOBACTAM 3.375 G in IV DEXTROSE 5% 50 ML IV SCH ×2 (00:08→06:13)
[2023-12-19] MEDS: GABAPENTIN 300 MG CAPSULE GT SCH ×5 (00:08→23:59)
[2023-12-19] MEDS: BETHANECHOL CHLORIDE 10 MG TABLET GT SCH ×5 (00:09→23:59)
[2023-12-19] MEDS: BLOOD SUGAR DIAGNOSTIC 1 EACH STRIP VI SCH ×4 (00:22→17:49)
[2023-12-19] MEDS: INSULIN REGULAR, HUMAN 300 UNIT/3 ML VIAL SQ PRN ×4 (00:28→17:51)
[2023-12-19 08:05] LABS: BASOPHILS # (AUTO) 0.1 K/UL (0.0-0.2); BASOPHILS % (AUTO) 0.5 % (0.0-2.0); EOSINOPHILS # (AUTO) 0.3 K/uL (0.0-0.7); EOSINOPHILS % (AUTO) 3.1 % (0.0-7.0); HEMATOCRIT 29.1 % (36.7-47.1); HEMOGLOBIN 8.9 g/dL (12.5-16.3); LYMPHOCYTES # (AUTO) 0.8 K/uL (0.8-4.8); LYMPHOCYTES % (AUTO) 7.2 % (20.5-51.5); MEAN CORPUSCULAR HEMOGLOBIN 28.1 uug (23.8-33.4); MEAN CORPUSCULAR HGB CONC 31 g/dL (32.5-36.3); MEAN CORPUSCULAR VOLUME 91.6 fL (73.0-96.2); MONOCYTES # (AUTO) 0.9 K/uL (0.1-1.30); MONOCYTES % (AUTO) 8.4 % (0.0-11.0); NEUTROPHILS # (AUTO) 8.8 K/uL (1.8-8.9); NEUTROPHILS % (AUTO) 80.8 % (38.5-71.5); PLATELET COUNT (AUTO) 200 K/uL (152-348); RED BLOOD CELL COUNT(AUTO) 3.18 MIL/uL (4.06-5.63); RED CELL DISTRIBUTION WIDTH 19.7 % (12.1-16.2); WHITE BLOOD COUNT (AUTO) 10.9 K/uL (3.6-10.2)
[2023-12-19 08:07] LABS: ABG BASE EXCESS 15.9 mmol/L (-2.0-2.0); ABG HCO3 42.4 mmol/L (22.0-26.0); ABG PCO2 63.1 mmHg (35.0-48.0); ABG PH 7.445 (7.340-7.440); ABG PO2 75.6 mmHg (75.0-100.0); ABG SITE RIGHT RADIAL; ABG TOTAL HEMOGLOBIN 10.2 G/dL (14.0-18.0); AaDO2 95.2 mmHg; COHb 1.1 % (0.0-3.9); MetHb 0.2 % (0.0-1.5); O2Hb 93.4 % (94.0-97.0)
[2023-12-19 08:19] LABS: DIFFERENTIAL COMMENT 1
[2023-12-19 08:28] LABS: CALCIUM 8.8 mg/dL (8.5-10.1); CHLORIDE 100 mmol/L (98-107); CREATININE 0.6 mg/dL (0.6-1.3); GLUCOSE 219 mg/dL (74-106); MAGNESIUM 1.7 mg/dL (1.8-2.4); PHOSPHOROUS 3.6 mg/dL (2.5-4.9); SODIUM SERUM 145 mmol/L (136-145); UREA NITROGEN, BLOOD 31 mg/dL (7-18)
[2023-12-19 08:32] LABS: CARBON DIOXIDE 40 mmol/L (21-32)
[2023-12-19 08:33] LABS: POTASSIUM 4.4 mmol/L (3.5-5.1)
[2023-12-19] MEDS ORDERED: MAGNESIUM OXIDE 400 MG TABLET GT ONE (09:30)
[2023-12-19] MEDS: DONEPEZIL 5 MG TABLET GT SCH (10:12)
[2023-12-19] MEDS: ESCITALOPRAM OXALATE 10 MG TABLET GT SCH (10:12)
[2023-12-19] MEDS: DOCUSATE SODIUM 100 MG/10 ML LIQUID UDC GT SCH (10:12)
[2023-12-19] MEDS: CHOLECALCIFEROL 1,000 UNIT TABLET GT SCH (10:13)
[2023-12-19] MEDS: MULTIVITAMINS,THERAPEUTIC TABLET GT SCH (10:13)
[2023-12-19] MEDS: ropiniROLE 1 MG TABLET GT SCH ×3 (10:13→17:49)
[2023-12-19] MEDS: FAMOTIDINE 20 MG TABLET GT SCH (10:13)
[2023-12-19] MEDS: ACETAMINOPHEN ES 500 MG TABLET GT SCH ×2 (10:13→17:49)
[2023-12-19] MEDS: FUROSEMIDE 40 MG/4 ML VIAL IV SCH (10:14)
[2023-12-19] MEDS: METOPROLOL TARTRATE 25 MG TABLET PO SCH ×2 (10:14→21:07)
[2023-12-19 10:16] LABS: ABG BASE EXCESS 17.1 mmol/L (-2.0-2.0); ABG HCO3 44.1 mmol/L (22.0-26.0); ABG PCO2 68.4 mmHg (35.0-48.0); ABG PH 7.427 (7.340-7.440); ABG SITE RIGHT RADIAL; ABG TOTAL HEMOGLOBIN 9.8 G/dL (14.0-18.0); COHb 0.9 % (0.0-3.9); MetHb 0.3 % (0.0-1.5); O2Hb 97.2 % (94.0-97.0)
[2023-12-19] MEDS: PROTEIN SUPPLEMENT (PROSTAT) 30 ML LIQUID PO SCH (10:16)
[2023-12-19] MEDS: ARGININE/GLUTAMINE/CALCIUM BMB 1 EACH POWD.PACK GT SCH ×2 (10:17→17:52)
[2023-12-19] MEDS: SODIUM HYPOCHLORITE 0.25% (HALF STRENGTH) 480 ML BOTTLE TOP SCH (10:18)
[2023-12-19] MEDS: POVIDONE-IODINE OINT 30 GM TUBE TP SCH (10:19)
[2023-12-19] MEDS: MEDIHONEY= THERAHONEY 1.5 OZ TUBE TOP SCH ×2 (10:19)
[2023-12-19] MEDS: ACETAzolamide SODIUM 500 MG VIAL IV SCH (12:19)
[2023-12-19] MEDS: PIPERACILLIN SODIUM/TAZOBACTAM 3.375 G in IV DEXTROSE 5% 100 ML IV SCH ×2 (13:32→21:41)
[2023-12-19] MEDS: GLUCERNA 1.2 1000ML LIQUID GT PRN (13:36)
[2023-12-19 19:24] LABS: ANISOCYTOSIS 1+; BAND % (MANUAL) 1 % (0-10); EOSINOPHILS % (MANUAL) 2 % (0-8); LYMPHOCYTES % (MANUAL) 7 % (20-40); MONOCYTES % (MANUAL) 5 % (2-10); NEUTROPHILS % (MANUAL) 85 % (42-75); PLATELET ESTIMATE ADEQUATE
[2023-12-19] MEDS: DOXAZOSIN 2 MG TABLET GT SCH (20:47)
[2023-12-19] MEDS: ATORVASTATIN 10 MG TABLET GT SCH (21:07)
[2023-12-19] MEDS: MELATONIN 3 MG TABLET GT SCH (21:08)
[2023-12-19] MEDS: INSULIN GLARGINE,HUM 300 UNITS/3 ML CARTRIDGE SQ SCH (21:22)
[2023-12-20] VITALS (7 sets, daily range): BP systolic 105–138; BP diastolic 44–62; TEMP 97.8–99.4; O2SAT 92–100
[2023-12-20] MEDS: BLOOD SUGAR DIAGNOSTIC 1 EACH STRIP VI SCH ×4 (00:12→17:21)
[2023-12-20] MEDS: INSULIN REGULAR, HUMAN 300 UNIT/3 ML VIAL SQ PRN ×4 (00:19→17:18)
[2023-12-20] MEDS: GLUCERNA 1.2 1000ML LIQUID GT PRN (04:07)
[2023-12-20 05:35] LABS: ABG BASE EXCESS 11.1 mmol/L (-2.0-2.0); ABG HCO3 37.3 mmol/L (22.0-26.0); ABG PCO2 59.2 mmHg (35.0-48.0); ABG PH 7.417 (7.340-7.440); ABG PO2 84.7 mmHg (75.0-100.0); ABG SITE LEFT BRACHIAL; ABG TOTAL HEMOGLOBIN 9.9 G/dL (14.0-18.0); AaDO2 96.3 mmHg; COHb 0.2 % (0.0-3.9); MetHb 0.3 % (0.0-1.5); O2Hb 95.4 % (94.0-97.0)
[2023-12-20] MEDS: GABAPENTIN 300 MG CAPSULE GT SCH ×3 (05:43→17:20)
[2023-12-20] MEDS: BETHANECHOL CHLORIDE 10 MG TABLET GT SCH ×3 (05:43→17:20)
[2023-12-20] MEDS: PIPERACILLIN SODIUM/TAZOBACTAM 3.375 G in IV DEXTROSE 5% 100 ML IV SCH ×3 (05:45→23:23)
[2023-12-20] MEDS: FAMOTIDINE 20 MG TABLET GT SCH (08:15)
[2023-12-20] MEDS: ACETAMINOPHEN ES 500 MG TABLET GT SCH ×2 (08:15→17:21)
[2023-12-20] MEDS: ESCITALOPRAM OXALATE 10 MG TABLET GT SCH (08:15)
[2023-12-20] MEDS: ACETAzolamide SODIUM 500 MG VIAL IV SCH (08:16)
[2023-12-20] MEDS: CHOLECALCIFEROL 1,000 UNIT TABLET GT SCH (08:16)
[2023-12-20] MEDS: DOCUSATE SODIUM 100 MG/10 ML LIQUID UDC GT SCH (08:19)
[2023-12-20] MEDS: DONEPEZIL 5 MG TABLET GT SCH (08:20)
[2023-12-20] MEDS: ARGININE/GLUTAMINE/CALCIUM BMB 1 EACH POWD.PACK GT SCH ×2 (08:20→17:21)
[2023-12-20] MEDS: METOPROLOL TARTRATE 25 MG TABLET PO SCH ×2 (08:21→21:23)
[2023-12-20] MEDS: MULTIVITAMINS,THERAPEUTIC TABLET GT SCH (08:21)
[2023-12-20] MEDS: PROTEIN SUPPLEMENT (PROSTAT) 30 ML LIQUID PO SCH (08:22)
[2023-12-20] MEDS: SODIUM HYPOCHLORITE 0.25% (HALF STRENGTH) 480 ML BOTTLE TOP SCH (08:24)
[2023-12-20] MEDS: POVIDONE-IODINE OINT 30 GM TUBE TP SCH (08:24)
[2023-12-20] MEDS: MEDIHONEY= THERAHONEY 1.5 OZ TUBE TOP SCH ×2 (08:24)
[2023-12-20 08:25] LABS: CALCIUM 9.3 mg/dL (8.5-10.1); CARBON DIOXIDE 39 mmol/L (21-32); CHLORIDE 99 mmol/L (98-107); CREATININE 0.7 mg/dL (0.6-1.3); GLUCOSE 343 mg/dL (74-106); MAGNESIUM 1.8 mg/dL (1.8-2.4); PHOSPHOROUS 2.7 mg/dL (2.5-4.9); POTASSIUM 3.1 mmol/L (3.5-5.1); SODIUM SERUM 142 mmol/L (136-145); UREA NITROGEN, BLOOD 34 mg/dL (7-18)
[2023-12-20 08:36] LABS: BASOPHILS # (AUTO) 0.1 K/UL (0.0-0.2); BASOPHILS % (AUTO) 0.7 % (0.0-2.0); EOSINOPHILS # (AUTO) 0.2 K/uL (0.0-0.7); EOSINOPHILS % (AUTO) 1.7 % (0.0-7.0); LYMPHOCYTES # (AUTO) 1.2 K/uL (0.8-4.8); LYMPHOCYTES % (AUTO) 11.2 % (20.5-51.5); MEAN CORPUSCULAR HEMOGLOBIN 29.9 uug (23.8-33.4); MEAN CORPUSCULAR HGB CONC 32 g/dL (32.5-36.3); MEAN CORPUSCULAR VOLUME 92.8 fL (73.0-96.2); MONOCYTES # (AUTO) 1.1 K/uL (0.1-1.30); MONOCYTES % (AUTO) 10.6 % (0.0-11.0); NEUTROPHILS % (AUTO) 75.8 % (38.5-71.5); PLATELET COUNT (AUTO) 348 K/uL (152-348); RED BLOOD CELL COUNT(AUTO) 3.02 MIL/uL (4.06-5.63); RED CELL DISTRIBUTION WIDTH 19.5 % (12.1-16.2); WHITE BLOOD COUNT (AUTO) 10.6 K/uL (3.6-10.2)
[2023-12-20 08:41] LABS: DIFFERENTIAL COMMENT 1
[2023-12-20] MEDS: ropiniROLE 1 MG TABLET GT SCH ×3 (08:49→17:20)
[2023-12-20] MEDS ORDERED: POTASSIUM CHLORIDE 20 MEQ POWDER PACKET GT ONE (09:00)
[2023-12-20] MEDS: POTASSIUM CHLORIDE 20 MEQ POWDER PACKET GT SCH ×2 (09:50→14:42)
[2023-12-20] MEDS ORDERED: LOSARTAN POTASSIUM 25 MG TABLET PO SCH (15:15)
[2023-12-20] MEDS: ATORVASTATIN 10 MG TABLET GT SCH (21:23)
[2023-12-20] MEDS: DOXAZOSIN 2 MG TABLET GT SCH (21:23)
[2023-12-20] MEDS: MELATONIN 3 MG TABLET GT SCH (21:25)
[2023-12-20] MEDS: INSULIN GLARGINE,HUM 300 UNITS/3 ML CARTRIDGE SQ SCH (21:59)
[2023-12-21] VITALS (7 sets, daily range): BP systolic 103–114; BP diastolic 43–54; TEMP 97.7–98.2; O2SAT 95–99
[2023-12-21] MEDS: GABAPENTIN 300 MG CAPSULE GT SCH ×4 (00:20→17:34)
[2023-12-21] MEDS: BETHANECHOL CHLORIDE 10 MG TABLET GT SCH ×4 (00:20→17:34)
[2023-12-21] MEDS: BLOOD SUGAR DIAGNOSTIC 1 EACH STRIP VI SCH ×4 (00:36→17:48)
[2023-12-21] MEDS: INSULIN REGULAR, HUMAN 300 UNIT/3 ML VIAL SQ PRN ×3 (06:00→17:51)
[2023-12-21 06:03] LABS: BASOPHILS # (AUTO) 0.1 K/UL (0.0-0.2); BASOPHILS % (AUTO) 0.9 % (0.0-2.0); EOSINOPHILS # (AUTO) 0.4 K/uL (0.0-0.7); EOSINOPHILS % (AUTO) 3.8 % (0.0-7.0); HEMATOCRIT 28.7 % (36.7-47.1); HEMOGLOBIN 9.1 g/dL (12.5-16.3); LYMPHOCYTES # (AUTO) 1.2 K/uL (0.8-4.8); LYMPHOCYTES % (AUTO) 12.5 % (20.5-51.5); MEAN CORPUSCULAR HGB CONC 32 g/dL (32.5-36.3); MEAN CORPUSCULAR VOLUME 91.5 fL (73.0-96.2); MONOCYTES % (AUTO) 10.4 % (0.0-11.0); NEUTROPHILS # (AUTO) 6.8 K/uL (1.8-8.9); NEUTROPHILS % (AUTO) 72.4 % (38.5-71.5); PLATELET COUNT (AUTO) 348 K/uL (152-348); RED BLOOD CELL COUNT(AUTO) 3.14 MIL/uL (4.06-5.63); RED CELL DISTRIBUTION WIDTH 19.8 % (12.1-16.2); WHITE BLOOD COUNT (AUTO) 9.4 K/uL (3.6-10.2)
[2023-12-21] MEDS: PIPERACILLIN SODIUM/TAZOBACTAM 3.375 G in IV DEXTROSE 5% 100 ML IV SCH ×3 (06:05→22:11)
[2023-12-21 06:17] LABS: CALCIUM 9.2 mg/dL (8.5-10.1); CARBON DIOXIDE 36 mmol/L (21-32); CHLORIDE 105 mmol/L (98-107); CREATININE 0.6 mg/dL (0.6-1.3); GLUCOSE 217 mg/dL (74-106); MAGNESIUM 1.7 mg/dL (1.8-2.4); PHOSPHOROUS 2.6 mg/dL (2.5-4.9); SODIUM SERUM 142 mmol/L (136-145); UREA NITROGEN, BLOOD 23 mg/dL (7-18)
[2023-12-21 06:21] LABS: DIFFERENTIAL COMMENT 1
[2023-12-21] MEDS: ropiniROLE 1 MG TABLET GT SCH ×3 (08:58→17:34)
[2023-12-21] MEDS: DOCUSATE SODIUM 100 MG/10 ML LIQUID UDC GT SCH (08:58)
[2023-12-21] MEDS: METOPROLOL TARTRATE 25 MG TABLET PO SCH ×2 (08:58→20:16)
[2023-12-21] MEDS: FAMOTIDINE 20 MG TABLET GT SCH (08:58)
[2023-12-21] MEDS: CHOLECALCIFEROL 1,000 UNIT TABLET GT SCH (08:58)
[2023-12-21] MEDS: ACETAMINOPHEN ES 500 MG TABLET GT SCH ×2 (08:59→17:34)
[2023-12-21] MEDS: DONEPEZIL 5 MG TABLET GT SCH (08:59)
[2023-12-21] MEDS: ESCITALOPRAM OXALATE 10 MG TABLET GT SCH (08:59)
[2023-12-21] MEDS: LOSARTAN POTASSIUM 25 MG TABLET GT SCH (08:59)
[2023-12-21] MEDS: PROTEIN SUPPLEMENT (PROSTAT) 30 ML LIQUID PO SCH (09:00)
[2023-12-21] MEDS: MULTIVITAMINS,THERAPEUTIC TABLET GT SCH (09:00)
[2023-12-21] MEDS: SODIUM HYPOCHLORITE 0.25% (HALF STRENGTH) 480 ML BOTTLE TOP SCH (09:00)
[2023-12-21] MEDS: ACETAzolamide SODIUM 500 MG VIAL IV SCH (09:00)
[2023-12-21] MEDS: ARGININE/GLUTAMINE/CALCIUM BMB 1 EACH POWD.PACK GT SCH ×2 (09:00→17:34)
[2023-12-21] MEDS: MEDIHONEY= THERAHONEY 1.5 OZ TUBE TOP SCH ×2 (09:01)
[2023-12-21] MEDS: POVIDONE-IODINE OINT 30 GM TUBE TP SCH (09:01)
[2023-12-21] MEDS: MAGNESIUM SULFATE/D5W 100 ML IV SCH ×5 (09:11→13:40)
[2023-12-21] MEDS: GLUCERNA 1.2 1000ML LIQUID GT PRN (09:16)
[2023-12-21] MEDS: DOXAZOSIN 2 MG TABLET GT SCH (20:14)
[2023-12-21] MEDS: MELATONIN 3 MG TABLET GT SCH (20:15)
[2023-12-21] MEDS: ATORVASTATIN 10 MG TABLET GT SCH (20:16)
[2023-12-21] MEDS: INSULIN GLARGINE,HUM 300 UNITS/3 ML CARTRIDGE SQ SCH (21:53)
[2023-12-22] VITALS (7 sets, daily range): BP systolic 93–118; BP diastolic 53–63; TEMP 97.8–98.3; O2SAT 93–98
[2023-12-22] MEDS: BETHANECHOL CHLORIDE 10 MG TABLET GT SCH ×5 (00:38→23:57)
[2023-12-22] MEDS: GABAPENTIN 300 MG CAPSULE GT SCH ×5 (00:38→23:57)
[2023-12-22] MEDS: BLOOD SUGAR DIAGNOSTIC 1 EACH STRIP VI SCH ×5 (00:50→23:57)
[2023-12-22] MEDS: PIPERACILLIN SODIUM/TAZOBACTAM 3.375 G in IV DEXTROSE 5% 100 ML IV SCH ×3 (05:05→21:15)
[2023-12-22] MEDS: INSULIN REGULAR, HUMAN 300 UNIT/3 ML VIAL SQ PRN ×3 (05:39→16:33)
[2023-12-22] MEDS: GLUCERNA 1.2 1000ML LIQUID GT PRN (05:46)
[2023-12-22 07:30] LABS: BASOPHILS # (AUTO) 0.1 K/UL (0.0-0.2); BASOPHILS % (AUTO) 1.3 % (0.0-2.0); EOSINOPHILS # (AUTO) 0.3 K/uL (0.0-0.7); EOSINOPHILS % (AUTO) 2.9 % (0.0-7.0); HEMATOCRIT 29.3 % (36.7-47.1); LYMPHOCYTES # (AUTO) 0.9 K/uL (0.8-4.8); LYMPHOCYTES % (AUTO) 7.8 % (20.5-51.5); MEAN CORPUSCULAR HEMOGLOBIN 28.4 uug (23.8-33.4); MEAN CORPUSCULAR HGB CONC 31 g/dL (32.5-36.3); MEAN CORPUSCULAR VOLUME 92.5 fL (73.0-96.2); MONOCYTES # (AUTO) 0.8 K/uL (0.1-1.30); MONOCYTES % (AUTO) 6.9 % (0.0-11.0); NEUTROPHILS # (AUTO) 8.9 K/uL (1.8-8.9); NEUTROPHILS % (AUTO) 81.1 % (38.5-71.5); PLATELET COUNT (AUTO) 337 K/uL (152-348); RED BLOOD CELL COUNT(AUTO) 3.17 MIL/uL (4.06-5.63); RED CELL DISTRIBUTION WIDTH 19.9 % (12.1-16.2)
[2023-12-22 07:57] LABS: CALCIUM 9.3 mg/dL (8.5-10.1); CARBON DIOXIDE 38 mmol/L (21-32); CHLORIDE 104 mmol/L (98-107); CREATININE 0.8 mg/dL (0.6-1.3); GLUCOSE 225 mg/dL (74-106); MAGNESIUM 2.4 mg/dL (1.8-2.4); PHOSPHOROUS 3.4 mg/dL (2.5-4.9); POTASSIUM 3.7 mmol/L (3.5-5.1); SODIUM SERUM 143 mmol/L (136-145); UREA NITROGEN, BLOOD 28 mg/dL (7-18)
[2023-12-22 08:10] LABS: DIFFERENTIAL COMMENT 1
[2023-12-22] MEDS: DOCUSATE SODIUM 100 MG/10 ML LIQUID UDC GT SCH (08:27)
[2023-12-22] MEDS: DONEPEZIL 5 MG TABLET GT SCH (08:27)
[2023-12-22] MEDS: ACETAMINOPHEN ES 500 MG TABLET GT SCH ×2 (08:27→16:13)
[2023-12-22] MEDS: CHOLECALCIFEROL 1,000 UNIT TABLET GT SCH (08:27)
[2023-12-22] MEDS: ropiniROLE 1 MG TABLET GT SCH ×3 (08:27→16:13)
[2023-12-22] MEDS: LOSARTAN POTASSIUM 25 MG TABLET GT SCH (08:27)
[2023-12-22] MEDS: FAMOTIDINE 20 MG TABLET GT SCH (08:27)
[2023-12-22] MEDS: MULTIVITAMINS,THERAPEUTIC TABLET GT SCH (08:27)
[2023-12-22] MEDS: ESCITALOPRAM OXALATE 10 MG TABLET GT SCH (08:27)
[2023-12-22] MEDS: METOPROLOL TARTRATE 25 MG TABLET PO SCH ×2 (08:29→21:17)
[2023-12-22] MEDS: ACETAzolamide SODIUM 500 MG VIAL IV SCH (08:30)
[2023-12-22] MEDS: PROTEIN SUPPLEMENT (PROSTAT) 30 ML LIQUID PO SCH (08:44)
[2023-12-22] MEDS: SODIUM HYPOCHLORITE 0.25% (HALF STRENGTH) 480 ML BOTTLE TOP SCH (08:45)
[2023-12-22] MEDS: ARGININE/GLUTAMINE/CALCIUM BMB 1 EACH POWD.PACK GT SCH ×2 (08:45→16:13)
[2023-12-22] MEDS: MEDIHONEY= THERAHONEY 1.5 OZ TUBE TOP SCH ×2 (08:45→08:46)
[2023-12-22] MEDS: POVIDONE-IODINE OINT 30 GM TUBE TP SCH (08:46)
[2023-12-22] MEDS ORDERED: INSULIN GLARGINE,HUM 300 UNITS/3 ML CARTRIDGE SQ SCH (21:00)
[2023-12-22] MEDS: MELATONIN 3 MG TABLET GT SCH (21:15)
[2023-12-22] MEDS: DOXAZOSIN 2 MG TABLET GT SCH (21:16)
[2023-12-22] MEDS: ATORVASTATIN 10 MG TABLET GT SCH (21:16)
[2023-12-23] MEDS: INSULIN REGULAR, HUMAN 300 UNIT/3 ML VIAL SQ PRN ×3 (00:21→11:59)
[2023-12-23] MEDS: GABAPENTIN 300 MG CAPSULE GT SCH ×2 (05:30→11:59)
[2023-12-23] MEDS: BETHANECHOL CHLORIDE 10 MG TABLET GT SCH ×2 (05:30→11:01)
[2023-12-23] MEDS: PIPERACILLIN SODIUM/TAZOBACTAM 3.375 G in IV DEXTROSE 5% 100 ML IV SCH ×2 (05:33→13:17)
[2023-12-23] MEDS: BLOOD SUGAR DIAGNOSTIC 1 EACH STRIP VI SCH ×2 (05:43→10:55)
[2023-12-23 07:03] VITALS: BP 109/47; TEMP 97.7; O2SAT 94
[2023-12-23] MEDS: ACETAMINOPHEN ES 500 MG TABLET GT SCH (08:04)
[2023-12-23] MEDS: CHOLECALCIFEROL 1,000 UNIT TABLET GT SCH (08:04)
[2023-12-23] MEDS: MULTIVITAMINS,THERAPEUTIC TABLET GT SCH (08:04)
[2023-12-23] MEDS: DOCUSATE SODIUM 100 MG/10 ML LIQUID UDC GT SCH (08:04)
[2023-12-23] MEDS: DONEPEZIL 5 MG TABLET GT SCH (08:04)
[2023-12-23 08:05] LABS: CALCIUM 9.1 mg/dL (8.5-10.1); CREATININE 0.7 mg/dL (0.6-1.3); POTASSIUM 3.6 mmol/L (3.5-5.1)
[2023-12-23] MEDS: ESCITALOPRAM OXALATE 10 MG TABLET GT SCH (08:05)
[2023-12-23] MEDS: ropiniROLE 1 MG TABLET GT SCH ×2 (08:05→12:01)
[2023-12-23] MEDS: METOPROLOL TARTRATE 25 MG TABLET PO SCH (08:05)
[2023-12-23] MEDS: LOSARTAN POTASSIUM 25 MG TABLET GT SCH (08:05)
[2023-12-23] MEDS: FAMOTIDINE 20 MG TABLET GT SCH (08:05)
[2023-12-23] MEDS: ARGININE/GLUTAMINE/CALCIUM BMB 1 EACH POWD.PACK GT SCH (08:06)
[2023-12-23] MEDS: PROTEIN SUPPLEMENT (PROSTAT) 30 ML LIQUID PO SCH (08:06)
[2023-12-23] MEDS: ACETAzolamide SODIUM 500 MG VIAL IV SCH (08:27)
[2023-12-23] MEDS: SODIUM HYPOCHLORITE 0.25% (HALF STRENGTH) 480 ML BOTTLE TOP SCH (08:53)
[2023-12-23] MEDS: MEDIHONEY= THERAHONEY 1.5 OZ TUBE TOP SCH ×2 (08:53→08:54)
[2023-12-23] MEDS: POVIDONE-IODINE OINT 30 GM TUBE TP SCH (08:54)
[2023-12-23 10:20] VITALS: O2SAT 96
[2023-12-23 11:34] VITALS: BP 96/54; TEMP 97.7; O2SAT 92
== END 2023-12-23 14:50 | DRG 853 ==
LOC: ER 14:40 → TELE3 21:35
PROVIDERS: ADMIT Internal Medicine; ATTEND Internal Medicine
PROC: 05HY33Z Insertion of Infusion Device into Upper Vein, Percutaneous Approach (ICD-10-PCS; 2023-12-13)
PROC: 5A09457 Assistance with Respiratory Ventilation, 24-96 Consecutive Hours, Continuous Positive Airway Pressure (ICD-10-PCS; principal; 2023-12-16)
PROC: 0LB Tendons, Excision (ICD-10-PCS; 2023-12-16)
PROC: 0JBR3ZZ Excision of Left Foot Subcutaneous Tissue and Fascia, Percutaneous Approach (ICD-10-PCS; 2023-12-16)
DX: A41.9 Sepsis, unspecified organism (principal); E43 Unspecified severe protein-calorie malnutrition; G93.41 Metabolic encephalopathy; J18.9 Pneumonia, unspecified organism; J69.0 Pneumonitis due to inhalation of food and vomit; J96.21 Acute and chronic respiratory failure with hypoxia; J96.22 Acute and chronic respiratory failure with hypercapnia; I50.43 Acute on chronic combined systolic (congestive) and diastolic (congestive) heart failure; L89.154 Pressure ulcer of sacral region, stage 4; E87.1 Hypo-osmolality and hyponatremia; D68.59 Other primary thrombophilia; L97.329 Non-pressure chronic ulcer of left ankle with unspecified severity; L97.313 Non-pressure chronic ulcer of right ankle with necrosis of muscle; J21.9 Acute bronchiolitis, unspecified; J98.11 Atelectasis; E11.52 Type 2 diabetes mellitus with diabetic peripheral angiopathy with gangrene; I70.261 Atherosclerosis of native arteries of extremities with gangrene, right leg; J36 Peritonsillar abscess; I74.5 Embolism and thrombosis of iliac artery; I42.9 Cardiomyopathy, unspecified; E87.4 Mixed disorder of acid-base balance; E87.0 Hyperosmolality and hypernatremia; R65.20 Severe sepsis without septic shock; E86.0 Dehydration; E86.1 Hypovolemia; E83.42 Hypomagnesemia; E87.6 Hypokalemia; Z74.09 Other reduced mobility; I11.0 Hypertensive heart disease with heart failure; G30.9 Alzheimer's disease, unspecified; F02.80 Dementia in other diseases classified elsewhere, unspecified severity, without behavioral disturbance, psychotic disturbance, mood disturbance, and anxiety; G20.A1 Parkinson's disease without dyskinesia, without mention of fluctuations; R33.9 Retention of urine, unspecified; R31.0 Gross hematuria; M24.572 Contracture, left ankle; M24.571 Contracture, right ankle; E11.622 Type 2 diabetes mellitus with other skin ulcer; I70.243 Atherosclerosis of native arteries of left leg with ulceration of ankle; I70.233 Atherosclerosis of native arteries of right leg with ulceration of ankle; R62.7 Adult failure to thrive; E11.65 Type 2 diabetes mellitus with hyperglycemia; L89.620 Pressure ulcer of left heel, unstageable; L89.610 Pressure ulcer of right heel, unstageable; Z79.84 Long term (current) use of oral hypoglycemic drugs; Z79.899 Other long term (current) drug therapy; Z86.79 Personal history of other diseases of the circulatory system; Z93.1 Gastrostomy status; K21.9 Gastro-esophageal reflux disease without esophagitis; Z93.3 Colostomy status; I70.0 Atherosclerosis of aorta; N31.9 Neuromuscular dysfunction of bladder, unspecified; E88.09 Other disorders of plasma-protein metabolism, not elsewhere classified; E87.8 Other disorders of electrolyte and fluid balance, not elsewhere classified; E66.9 Obesity, unspecified; E78.5 Hyperlipidemia, unspecified; D64.9 Anemia, unspecified; I77.1 Stricture of artery; M19.90 Unspecified osteoarthritis, unspecified site; Z79.4 Long term (current) use of insulin; R79.89 Other specified abnormal findings of blood chemistry; Z95.810 Presence of automatic (implantable) cardiac defibrillator; I49.9 Cardiac arrhythmia, unspecified; K40.20 Bilateral inguinal hernia, without obstruction or gangrene, not specified as recurrent; Z95.1 Presence of aortocoronary bypass graft; K29.70 Gastritis, unspecified, without bleeding; G50.0 Trigeminal neuralgia; I25.10 Atherosclerotic heart disease of native coronary artery without angina pectoris; Z93.6 Other artificial openings of urinary tract status; Z79.82 Long term (current) use of aspirin
CPT/HCPCS: 36415; 36600; 70030-TC; 70450; 71045; 71260; 76604; 80164; 82803; 83550; 83605; 83735; 84100; 84443; 84484; 85025; 85730; 86850; 86900; 86901; 87040; 93005; 93307; 94640; 94660; 94760; A4606; A4663; A6209; A6213; A9150; G0378; J0696; J1120; J1644; J1815; J1940; J2543; J2916; J3370; J3430; J3475; J3490; J7040; J7050; Q9967